=== PATIENT | female | born 1935 | race Caucasian/White ===

== ENCOUNTER 2021-09-07 16:25 | Inpatient (IN) | payer BC ==
[2021-09-07] MEDS ORDERED: SODIUM CHLORIDE 1,633 ML IV ONE (17:00)
[2021-09-07] MEDS ORDERED: PIPERACILLIN/TAZOB 4.5 GM 4.5 GM in DEXTROSE 5%-WATER 100 ML IVPB ONE (17:01)
[2021-09-07] MEDS ORDERED: VANCOMYCIN 1 GM in D5W (PRE-DOCKED) 1,000 MG/250 ML IVPB ONE (17:01)
[2021-09-07] MEDS ORDERED: SODIUM CHLORIDE 0.9% 500 ML INFUS.BAG IV ONE (17:02)
[2021-09-07] MEDS ORDERED: oxyCODONE HCL 5 MG TABLET PO PRN (17:34)
[2021-09-07] MEDS ORDERED: FUROSEMIDE 40 MG TABLET (FP) ONE (18:14)
[2021-09-07] MEDS ORDERED: PIPERACILLIN/TAZOB 4.5 GM 4.5 GM/100 ML BAG IVPB ONE (18:14)
[2021-09-07] MEDS: FUROSEMIDE 40 MG TABLET (FP) PO SCH (18:28)
[2021-09-07 18:51] LABS: BASO % 0.6 % (0-2.0); EOS % 0.8 % (0-4.5); HEMATOCRIT 35.7 % (32.4-45.2); HEMOGLOBIN 11.7 GM/dL (10.7-15.3); LYMPH % 11.9 % (8-40); MCH 28.9 pg (25.7-33.7); MCHC 32.9 g/dl (32.0-36.0); MEAN CELL VOLUME 87.6 fl (80-96); MEAN PLT VOLUME 6.4 fl (7.5-11.1); MONO % 8.3 % (3.8-10.2); NEUT % 78.4 % (42.8-82.8); PLATELET COUNT 393 10^3/uL (134-434); RBC 4.07 M/mm3 (3.60-5.2); RDW 15.9 % (11.6-15.6); WHITE BLOOD COUNT 9.3 K/mm3 (4.0-10.0)
[2021-09-07 18:58] LABS: INR 1.01 (0.83-1.09); PROTHROMBIN TIME (PATIENT) 11.6 SEC (9.7-13.0)
[2021-09-07 19:00] LABS: ACTIVATED PTT 31.1 SECONDS (25.2-36.5)
[2021-09-07 19:05] LABS: CALCIUM 8.4 mg/dL (8.5-10.1)
[2021-09-07 19:06] LABS: ALBUMIN 2.5 g/dl (3.4-5.0); BLOOD UREA NITROGEN 18.4 mg/dL (7-18)
[2021-09-07 19:09] LABS: CREATININE 0.8 mg/dL (0.55-1.3)
[2021-09-07 19:10] LABS: BILIRUBIN,TOTAL 0.3 mg/dL (0.2-1); TOT PROT 6.4 g/dl (6.4-8.2)
[2021-09-07 19:56] LABS: ERYTHROCYTE SEDIMENTATION RATE 45 mm/hr (0-30)
[2021-09-07] MEDS ORDERED: VANCOMYCIN 1 GRAM (PRE-DOCKED) 1,000 MG/250 ML BAG IVPB ONE (20:28)
[2021-09-07] MEDS: HEPARIN NA (PORCINE) 5,000 UNITS/ML 1ML VIAL SQ SCH (22:35)
[2021-09-08] MEDS: ACETAMINOPHEN 325 MG TABLET (FP) PO PRN ×2 (05:03→23:55)
[2021-09-08 10:00] LABS: BASO % 0.5 % (0-2.0); EOS % 0.2 % (0-4.5); HEMATOCRIT 33.3 % (32.4-45.2); HEMOGLOBIN 11.3 GM/dL (10.7-15.3); LYMPH % 11.7 % (8-40); MCH 29.3 pg (25.7-33.7); MCHC 33.8 g/dl (32.0-36.0); MEAN CELL VOLUME 86.6 fl (80-96); MEAN PLT VOLUME 6.3 fl (7.5-11.1); MONO % 12.8 % (3.8-10.2); NEUT % 74.8 % (42.8-82.8); PLATELET COUNT 364 10^3/uL (134-434); RBC 3.84 M/mm3 (3.60-5.2); RDW 15.5 % (11.6-15.6); WHITE BLOOD COUNT 8.6 K/mm3 (4.0-10.0)
[2021-09-08 10:28] LABS: CALCIUM 7.7 mg/dL (8.5-10.1)
[2021-09-08 10:29] LABS: ALBUMIN 2.1 g/dl (3.4-5.0); BLOOD UREA NITROGEN 15.3 mg/dL (7-18)
[2021-09-08 10:32] LABS: CREATININE 0.9 mg/dL (0.55-1.3)
[2021-09-08 10:33] LABS: TOT PROT 5.5 g/dl (6.4-8.2)
[2021-09-08 10:38] LABS: BILIRUBIN,TOTAL 0.7 mg/dL (0.2-1)
[2021-09-08] MEDS: HEPARIN NA (PORCINE) 5,000 UNITS/ML 1ML VIAL SQ SCH ×2 (11:25→23:56)
[2021-09-08] MEDS: FUROSEMIDE 40 MG TABLET (FP) PO SCH (11:25)
[2021-09-08] MEDS: POTASSIUM CHLORIDE ORAL LIQUID 20 MEQ/15 ML PO SCH (13:09)
[2021-09-08] MEDS ORDERED: AMPICILLIN NA/SULBACTAM NA 1.5 GM VIAL ONE ×2 (15:44→23:44)
[2021-09-08] MEDS ORDERED: SODIUM CHLORIDE 100 ML IVPB ONE ×2 (15:45→23:45)
[2021-09-08] MEDS: AMPICILLIN NA/SULBACTAM NA 1.5 GM in SODIUM CHLORIDE 100 ML IVPB SCH ×2 (16:52→23:55)
[2021-09-08] MEDS ORDERED: MEROPENEM 1 GM in DEXTROSE 5%-WATER 100 ML IVPB ONE (22:45)
[2021-09-08] MEDS ORDERED: MEROPENEM 1 GM VIAL (RESTRICTED TO ID) IVPB ONE (23:52)
[2021-09-08] MEDS ORDERED: DEXTROSE 5%-WATER 100 ML IVPB ONE (23:53)
[2021-09-09] MEDS ORDERED: SODIUM CHLORIDE 100 ML IVPB ONE ×2 (02:13→10:09)
[2021-09-09] MEDS ORDERED: AMPICILLIN NA/SULBACTAM NA 1.5 GM VIAL ONE ×2 (02:13→10:09)
[2021-09-09] MEDS: AMPICILLIN NA/SULBACTAM NA 1.5 GM in SODIUM CHLORIDE 100 ML IVPB SCH ×2 (02:25→10:13)
[2021-09-09] MEDS: HEPARIN NA (PORCINE) 5,000 UNITS/ML 1ML VIAL SQ SCH ×2 (10:13→22:02)
[2021-09-09] MEDS: POTASSIUM CHLORIDE ORAL LIQUID 20 MEQ/15 ML PO SCH (10:13)
[2021-09-09] MEDS: FUROSEMIDE 40 MG TABLET (FP) PO SCH (10:13)
[2021-09-09] MEDS ORDERED: DEXTROSE 5%-WATER 100 ML IVPB ONE (15:22)
[2021-09-09] MEDS: CEFTRIAXONE 2 GM in DEXTROSE 5%-WATER 2 GM/100 ML BAG IVPB SCH (15:30)
[2021-09-09] MEDS: ACETAMINOPHEN 325 MG TABLET (FP) PO PRN (15:30)
[2021-09-09] MEDS: MINERAL OIL/PET HY-PHL TOPICAL OINTMENT 454 GM JAR TP SCH (15:30)
[2021-09-09] MEDS: BACITRACIN 15 GM TUBE TOPICAL OINTMENT TP SCH ×2 (15:31→22:02)
[2021-09-10] MEDS ORDERED: DEXTROSE 5%-WATER 100 ML IVPB ONE (09:56)
[2021-09-10 09:57] LABS: BASO % 0.4 % (0-2.0); EOS % 0.9 % (0-4.5); HEMATOCRIT 31.4 % (32.4-45.2); HEMOGLOBIN 10.4 GM/dL (10.7-15.3); LYMPH % 14.1 % (8-40); MCH 28.8 pg (25.7-33.7); MCHC 33.1 g/dl (32.0-36.0); MEAN PLT VOLUME 6.5 fl (7.5-11.1); MONO % 7.7 % (3.8-10.2); NEUT % 76.9 % (42.8-82.8); PLATELET COUNT 302 10^3/uL (134-434); RBC 3.61 M/mm3 (3.60-5.2); RDW 15.6 % (11.6-15.6); WHITE BLOOD COUNT 7.9 K/mm3 (4.0-10.0)
[2021-09-10] MEDS: POTASSIUM CHLORIDE ORAL LIQUID 20 MEQ/15 ML PO SCH (10:00)
[2021-09-10] MEDS: HEPARIN NA (PORCINE) 5,000 UNITS/ML 1ML VIAL SQ SCH ×2 (10:01→22:31)
[2021-09-10] MEDS: FUROSEMIDE 40 MG TABLET (FP) PO SCH (10:01)
[2021-09-10 10:14] LABS: CALCIUM 7.1 mg/dL (8.5-10.1)
[2021-09-10 10:18] LABS: BLOOD UREA NITROGEN 12.9 mg/dL (7-18); CREATININE 0.9 mg/dL (0.55-1.3)
[2021-09-10 10:20] LABS: BILIRUBIN,TOTAL 0.3 mg/dL (0.2-1); TOT PROT 4.7 g/dl (6.4-8.2)
[2021-09-10 10:26] LABS: ALBUMIN 1.5 g/dl (3.4-5.0)
[2021-09-10] MEDS: CEFTRIAXONE 2 GM in DEXTROSE 5%-WATER 2 GM/100 ML BAG IVPB SCH (12:13)
[2021-09-10] MEDS: BACITRACIN 15 GM TUBE TOPICAL OINTMENT TP SCH (17:46)
[2021-09-10] MEDS: MINERAL OIL/PET HY-PHL TOPICAL OINTMENT 454 GM JAR TP SCH (17:46)
[2021-09-11] MEDS: BACITRACIN 15 GM TUBE TOPICAL OINTMENT TP SCH ×3 (01:51→22:43)
[2021-09-11] MEDS ORDERED: DEXTROSE 5%-WATER 100 ML IVPB ONE (10:37)
[2021-09-11] MEDS: HEPARIN NA (PORCINE) 5,000 UNITS/ML 1ML VIAL SQ SCH ×2 (10:45→22:43)
[2021-09-11] MEDS: FUROSEMIDE 40 MG TABLET (FP) PO SCH ×2 (10:45→14:20)
[2021-09-11] MEDS: AMINO ACIDS/PROTEIN HYDROLYS 30 ML LIQUID.PKT PO SCH (10:48)
[2021-09-11] MEDS: POTASSIUM CHLORIDE ORAL LIQUID 20 MEQ/15 ML PO SCH (10:49)
[2021-09-11] MEDS: CEFTRIAXONE 2 GM in DEXTROSE 5%-WATER 2 GM/100 ML BAG IVPB SCH ×2 (10:49→12:27)
[2021-09-11] MEDS: POTASSIUM CHLORIDE TABS 10 MEQ TABLET.ER (FP) PO SCH (14:20)
[2021-09-11] MEDS: MINERAL OIL/PET HY-PHL TOPICAL OINTMENT 454 GM JAR TP SCH (15:37)
[2021-09-12] MEDS: AMINO ACIDS/PROTEIN HYDROLYS 30 ML LIQUID.PKT PO SCH (08:50)
[2021-09-12 09:23] LABS: HEMATOCRIT 34.6 % (32.4-45.2); HEMOGLOBIN 11.9 GM/dL (10.7-15.3); LYMPH % 24.3 % (8-40); MCH 29.4 pg (25.7-33.7); MCHC 34.3 g/dl (32.0-36.0); MEAN CELL VOLUME 85.7 fl (80-96); MEAN PLT VOLUME 6.4 fl (7.5-11.1); MONO % 9.8 % (3.8-10.2); NEUT % 59.9 % (42.8-82.8); PLATELET COUNT 332 10^3/uL (134-434); RBC 4.04 M/mm3 (3.60-5.2); RDW 15.6 % (11.6-15.6); WHITE BLOOD COUNT 5.9 K/mm3 (4.0-10.0)
[2021-09-12] MEDS ORDERED: DEXTROSE 5%-WATER 100 ML IVPB ONE (09:41)
[2021-09-12] MEDS: CEFTRIAXONE 2 GM in DEXTROSE 5%-WATER 2 GM/100 ML BAG IVPB SCH (09:43)
[2021-09-12] MEDS: POTASSIUM CHLORIDE TABS 10 MEQ TABLET.ER (FP) PO SCH (09:43)
[2021-09-12] MEDS: FUROSEMIDE 40 MG TABLET (FP) PO SCH (09:44)
[2021-09-12] MEDS: HEPARIN NA (PORCINE) 5,000 UNITS/ML 1ML VIAL SQ SCH ×2 (09:44→22:36)
[2021-09-12 09:58] LABS: CALCIUM 7.9 mg/dL (8.5-10.1)
[2021-09-12 09:59] LABS: BLOOD UREA NITROGEN 13.8 mg/dL (7-18)
[2021-09-12 10:02] LABS: CREATININE 0.7 mg/dL (0.55-1.3)
[2021-09-12 10:04] LABS: BILIRUBIN,TOTAL 0.4 mg/dL (0.2-1); TOT PROT 5.5 g/dl (6.4-8.2)
[2021-09-12 10:05] LABS: ALBUMIN 1.9 g/dl (3.4-5.0)
[2021-09-12] MEDS: SENNOSIDES 8.6MG TABLET (FP) PO SCH ×2 (11:56→22:37)
[2021-09-12] MEDS ORDERED: SERTRALINE HCL 25 MG TABLET (FP) PO SCH (14:45)
[2021-09-12] MEDS: MINERAL OIL/PET HY-PHL TOPICAL OINTMENT 454 GM JAR TP SCH (17:17)
[2021-09-12] MEDS: BACITRACIN 15 GM TUBE TOPICAL OINTMENT TP SCH ×2 (17:17→22:36)
[2021-09-12] MEDS: METOCLOPRAMIDE HCL 10 MG TABLET (FP) PO SCH (17:17)
[2021-09-13] MEDS: METOCLOPRAMIDE HCL 10 MG TABLET (FP) PO SCH ×3 (06:18→17:08)
[2021-09-13] MEDS ORDERED: DEXTROSE 5%-WATER 100 ML IVPB ONE (10:51)
[2021-09-13] MEDS: AMINO ACIDS/PROTEIN HYDROLYS 30 ML LIQUID.PKT PO SCH (11:33)
[2021-09-13] MEDS: POTASSIUM CHLORIDE TABS 10 MEQ TABLET.ER (FP) PO SCH (11:36)
[2021-09-13] MEDS: HEPARIN NA (PORCINE) 5,000 UNITS/ML 1ML VIAL SQ SCH ×2 (11:36→21:02)
[2021-09-13] MEDS: FUROSEMIDE 40 MG TABLET (FP) PO SCH (11:36)
[2021-09-13] MEDS: SENNOSIDES 8.6MG TABLET (FP) PO SCH ×2 (11:36→21:02)
[2021-09-13] MEDS: MINERAL OIL/PET HY-PHL TOPICAL OINTMENT 454 GM JAR TP SCH (11:37)
[2021-09-13] MEDS: CEFTRIAXONE 2 GM in DEXTROSE 5%-WATER 2 GM/100 ML BAG IVPB SCH (11:37)
[2021-09-13] MEDS: BACITRACIN 15 GM TUBE TOPICAL OINTMENT TP SCH ×2 (11:37→21:01)
[2021-09-13] MEDS: TAMSULOSIN HCL 0.4 MG CAP PO SCH (15:33)
[2021-09-14] MEDS: METOCLOPRAMIDE HCL 10 MG TABLET (FP) PO SCH ×3 (06:26→18:06)
[2021-09-14] MEDS ORDERED: DEXTROSE 5%-WATER 100 ML IVPB ONE (10:25)
[2021-09-14] MEDS: SENNOSIDES 8.6MG TABLET (FP) PO SCH ×3 (10:34→21:43)
[2021-09-14] MEDS: TAMSULOSIN HCL 0.4 MG CAP PO SCH (10:34)
[2021-09-14] MEDS: AMINO ACIDS/PROTEIN HYDROLYS 30 ML LIQUID.PKT PO SCH (10:35)
[2021-09-14] MEDS: MINERAL OIL/PET HY-PHL TOPICAL OINTMENT 454 GM JAR TP SCH (10:35)
[2021-09-14] MEDS: FUROSEMIDE 40 MG TABLET (FP) PO SCH (10:35)
[2021-09-14] MEDS: POTASSIUM CHLORIDE TABS 10 MEQ TABLET.ER (FP) PO SCH (10:35)
[2021-09-14] MEDS: HEPARIN NA (PORCINE) 5,000 UNITS/ML 1ML VIAL SQ SCH (10:36)
[2021-09-14] MEDS: CEFTRIAXONE 2 GM in DEXTROSE 5%-WATER 2 GM/100 ML BAG IVPB SCH (12:29)
[2021-09-14] MEDS: SERTRALINE HCL 25 MG TABLET (FP) PO SCH (18:27)
[2021-09-14] MEDS: BACITRACIN 15 GM TUBE TOPICAL OINTMENT TP SCH ×2 (18:28→21:44)
[2021-09-14 18:50] VITALS: BMI 20.1
[2021-09-15] MEDS: TAMSULOSIN HCL 0.4 MG CAP PO SCH (08:27)
[2021-09-15] MEDS: AMINO ACIDS/PROTEIN HYDROLYS 30 ML LIQUID.PKT PO SCH (08:27)
[2021-09-15] MEDS ORDERED: DEXTROSE 5%-WATER 100 ML IVPB ONE (09:05)
[2021-09-15] MEDS: CEFTRIAXONE 2 GM in DEXTROSE 5%-WATER 2 GM/100 ML BAG IVPB SCH (09:15)
[2021-09-15] MEDS: SERTRALINE HCL 25 MG TABLET (FP) PO SCH (09:22)
[2021-09-15] MEDS: FUROSEMIDE 40 MG TABLET (FP) PO SCH (09:22)
[2021-09-15] MEDS: SENNOSIDES 8.6MG TABLET (FP) PO SCH ×2 (09:22→22:16)
[2021-09-15] MEDS: POTASSIUM CHLORIDE TABS 10 MEQ TABLET.ER (FP) PO SCH (09:22)
[2021-09-15] MEDS: BACITRACIN 15 GM TUBE TOPICAL OINTMENT TP SCH ×2 (09:23→22:34)
[2021-09-15] MEDS: MINERAL OIL/PET HY-PHL TOPICAL OINTMENT 454 GM JAR TP SCH (09:24)
[2021-09-15] MEDS: metroNIDAZOLE 500 MG TABLET PO SCH ×2 (14:04→22:34)
[2021-09-16] MEDS: metroNIDAZOLE 500 MG TABLET PO SCH ×3 (08:09→23:21)
[2021-09-16] MEDS: TAMSULOSIN HCL 0.4 MG CAP PO SCH (08:09)
[2021-09-16] MEDS: AMINO ACIDS/PROTEIN HYDROLYS 30 ML LIQUID.PKT PO SCH (08:09)
[2021-09-16] MEDS: SERTRALINE HCL 25 MG TABLET (FP) PO SCH (09:16)
[2021-09-16] MEDS: SENNOSIDES 8.6MG TABLET (FP) PO SCH ×3 (09:16→23:24)
[2021-09-16] MEDS: FUROSEMIDE 40 MG TABLET (FP) PO SCH (09:16)
[2021-09-16] MEDS: POTASSIUM CHLORIDE TABS 10 MEQ TABLET.ER (FP) PO SCH (09:16)
[2021-09-16] MEDS: BACITRACIN 15 GM TUBE TOPICAL OINTMENT TP SCH ×2 (18:27→23:21)
[2021-09-16] MEDS: MINERAL OIL/PET HY-PHL TOPICAL OINTMENT 454 GM JAR TP SCH (18:27)
[2021-09-17] MEDS: metroNIDAZOLE 500 MG TABLET PO SCH (06:07)
[2021-09-17 06:08] LABS: SARS-CoV-2 NAA Not Detected (Not Detected)
[2021-09-17] MEDS: AMINO ACIDS/PROTEIN HYDROLYS 30 ML LIQUID.PKT PO SCH (09:25)
[2021-09-17] MEDS: SENNOSIDES 8.6MG TABLET (FP) PO SCH (09:29)
[2021-09-17] MEDS: SERTRALINE HCL 25 MG TABLET (FP) PO SCH (09:59)
[2021-09-17] MEDS: FUROSEMIDE 40 MG TABLET (FP) PO SCH (09:59)
[2021-09-17] MEDS: POTASSIUM CHLORIDE TABS 10 MEQ TABLET.ER (FP) PO SCH (09:59)
[2021-09-17] MEDS: TAMSULOSIN HCL 0.4 MG CAP PO SCH (09:59)
[2021-09-17] MEDS: MINERAL OIL/PET HY-PHL TOPICAL OINTMENT 454 GM JAR TP SCH (09:59)
[2021-09-17] MEDS: BACITRACIN 15 GM TUBE TOPICAL OINTMENT TP SCH (10:00)
[2021-09-17 12:33] VITALS: BP 129/78; PULSE 86; TEMP 98.2
== END 2021-09-17 13:11 | DRG 602 ==
LOC: JER 16:25 → JERBED 17:10 → J5S 22:32
PROVIDERS: ADMIT Internal Medicine; ATTEND Internal Medicine
DX: L03.116 Cellulitis of left lower limb (principal); E43 Unspecified severe protein-calorie malnutrition; J18.9 Pneumonia, unspecified organism; R78.81 Bacteremia; L97.929 Non-pressure chronic ulcer of unspecified part of left lower leg with unspecified severity; L97.919 Non-pressure chronic ulcer of unspecified part of right lower leg with unspecified severity; J90 Pleural effusion, not elsewhere classified; J98.11 Atelectasis; L03.115 Cellulitis of right lower limb; R33.9 Retention of urine, unspecified; N20.0 Calculus of kidney; N28.1 Cyst of kidney, acquired
CPT/HCPCS: 36415; 70450-TC; 71045-TC-FY; 72125-TC; 73590-TC-LT-FY; 73590-TC-RT-FY; 73610-TC-LT-FY; 73610-TC-RT-FY; 73630-TC-LT; 73630-TC-RT-FY; 74176-TC; 80053; 80061; 82553; 83036; 83605; 84443; 85025; 85610; 85651; 85730; 86140; 86850; 86900; 86901; 87040; 87076; 93005; 93010; 93970-TC; 97116-GP; 97161-GP; 99285-25; C9803-CS; J1644; U0003; U0005

== ENCOUNTER 2021-11-11 11:24 | Inpatient (IN) | payer BC ==
[2021-11-11] MEDS ORDERED: VANCOMYCIN 1 GM in D5W (PRE-DOCKED) 1,000 MG/250 ML IVPB ONE (12:18)
[2021-11-11] MEDS ORDERED: VANCOMYCIN 1 GRAM (PRE-DOCKED) 1,000 MG/250 ML BAG IVPB ONE (13:22)
[2021-11-11 13:24] LABS: BASO % 0.6 % (0-2.0); EOS % 0.8 % (0-4.5); HEMATOCRIT 36.8 % (32.4-45.2); HEMOGLOBIN 11.9 GM/dL (10.7-15.3); LYMPH % 16.7 % (8-40); MCH 28.6 pg (25.7-33.7); MCHC 32.4 g/dl (32.0-36.0); MEAN CELL VOLUME 88.1 fl (80-96); MEAN PLT VOLUME 6.4 fl (7.5-11.1); MONO % 9.7 % (3.8-10.2); NEUT % 72.2 % (42.8-82.8); PLATELET COUNT 433 10^3/uL (134-434); RBC 4.17 M/mm3 (3.60-5.2); RDW 15.5 % (11.6-15.6)
[2021-11-11 13:33] LABS: BLOOD UREA NITROGEN 16.1 mg/dL (7-18)
[2021-11-11 13:34] LABS: INR 0.94 (0.83-1.09); PROTHROMBIN TIME (PATIENT) 10.8 SEC (9.7-13.0)
[2021-11-11 13:34] LABS: ALBUMIN 2.7 g/dl (3.4-5.0); CALCIUM 8.9 mg/dL (8.5-10.1)
[2021-11-11 13:39] LABS: BILIRUBIN,TOTAL 0.4 mg/dL (0.2-1); TOT PROT 7.4 g/dl (6.4-8.2)
[2021-11-11 13:41] LABS: N-TERMINAL BNP 410.5 pg/ml (5-450)
[2021-11-11] MEDS ORDERED: ACETAMINOPHEN 325 MG TABLET (FP) PO PRN (14:03)
[2021-11-11] MEDS ORDERED: FUROSEMIDE 40 MG/4 ML INJECTABLE VIAL ONE (16:25)
[2021-11-11] MEDS: FUROSEMIDE 40 MG/4 ML INJECTABLE VIAL IVPUSH SCH (16:28)
[2021-11-11 18:48] VITALS: BMI 21.1
[2021-11-11 19:00] LABS: EPI CELLS 1 /uL (0-25.1); HYALINE CASTS 0 /uL (0-3.1); PH,URINE 6.5 (5.0-8.0); URINE APPEARANCE CLEAR; URINE BACTERIA 36 /uL (0-1359); URINE BILIRUBIN NEGATIVE (NEGATIVE); URINE COLOR YELLOW; URINE GLUCOSE (UA) NEGATIVE (NEGATIVE); URINE KETONE NEGATIVE (NEGATIVE); URINE LEUK ESTERASE TRACE (NEGATIVE); URINE NITRITE NEGATIVE (NEGATIVE); URINE PROTEIN TRACE (NEGATIVE); URINE RBC 15 /uL (0-23.9); URINE UROBILINOGEN 0.2 mg/dL (0.2-1.0); URINE WBC 2 /uL (0-25.8)
[2021-11-11] MEDS ORDERED: DEXTROSE 5%-WATER - 50 ML IVPB ONE (19:17)
[2021-11-11] MEDS ORDERED: ceFAZolin SODIUM 1 GM VIAL ONE (19:17)
[2021-11-11] MEDS: ENOXAPARIN NA (PORCINE) 40 MG/0.4 ML DISP.SYRIN SQ SCH (19:18)
[2021-11-11] MEDS: CEFAZOLIN 1 GM in DEXTROSE 5%-WATER - 50 ML IVPB SCH (19:19)
[2021-11-11] MEDS: SENNOSIDES 8.6MG TABLET (FP) PO SCH ×2 (21:48→21:52)
[2021-11-12] MEDS: CEFAZOLIN 1 GM in DEXTROSE 5%-WATER - 50 ML IVPB SCH ×3 (02:00→18:44)
[2021-11-12] MEDS ORDERED: ceFAZolin SODIUM 1 GM VIAL ONE ×3 (03:13→16:32)
[2021-11-12] MEDS ORDERED: DEXTROSE 5%-WATER - 50 ML IVPB ONE ×3 (03:13→16:32)
[2021-11-12] MEDS ORDERED: AMINO ACIDS/PROTEIN HYDROLYS 30 ML LIQUID.PKT PO SCH (08:00)
[2021-11-12] MEDS: TAMSULOSIN HCL 0.4 MG CAP PO SCH (10:53)
[2021-11-12] MEDS: POTASSIUM CHLORIDE TABS 20 MEQ TABLET.ER (FP) PO SCH (10:53)
[2021-11-12] MEDS: MINERAL OIL/PET HY-PHL TOPICAL OINTMENT 454 GM JAR TP SCH (10:53)
[2021-11-12] MEDS: FUROSEMIDE 40 MG/4 ML INJECTABLE VIAL IVPUSH SCH (10:54)
[2021-11-12] MEDS: SENNOSIDES 8.6MG TABLET (FP) PO SCH (10:54)
[2021-11-12] MEDS: SERTRALINE HCL 25 MG TABLET (FP) PO SCH (10:54)
[2021-11-12] MEDS: ENOXAPARIN NA (PORCINE) 40 MG/0.4 ML DISP.SYRIN SQ SCH (10:54)
[2021-11-12] MEDS: VANCOMYCIN/WATER FOR INJ (PEG) 1,000 MG/200 ML BAG IVPB SCH (11:44)
[2021-11-12] MEDS: LIDOCAINE 5% TOPICAL PATCH TP SCH (12:44)
[2021-11-12] MEDS: LIDOCAINE PATCH REMOVAL MC SCH (22:43)
[2021-11-12] MEDS: HEPARIN NA (PORCINE) 5,000 UNITS/ML 1ML VIAL SQ SCH (22:43)
[2021-11-13 00:10] LABS: URINE APPEARANCE CLEAR; URINE BILIRUBIN NEGATIVE (NEGATIVE); URINE COLOR YELLOW; URINE GLUCOSE (UA) NEGATIVE (NEGATIVE); URINE KETONE NEGATIVE (NEGATIVE); URINE LEUK ESTERASE NEGATIVE (NEGATIVE); URINE NITRITE NEGATIVE (NEGATIVE); URINE PROTEIN NEGATIVE (NEGATIVE); URINE UROBILINOGEN 0.2 mg/dL (0.2-1.0)
[2021-11-13] MEDS ORDERED: ceFAZolin SODIUM 1 GM VIAL ONE ×3 (03:00→17:05)
[2021-11-13] MEDS ORDERED: DEXTROSE 5%-WATER - 50 ML IVPB ONE ×3 (03:01→17:05)
[2021-11-13] MEDS: CEFAZOLIN 1 GM in DEXTROSE 5%-WATER - 50 ML IVPB SCH ×4 (03:30→17:16)
[2021-11-13 09:30] LABS: BASO % 0.6 % (0-2.0); EOS % 2.3 % (0-4.5); HEMATOCRIT 34.2 % (32.4-45.2); HEMOGLOBIN 11.4 GM/dL (10.7-15.3); LYMPH % 17.6 % (8-40); MCHC 33.4 g/dl (32.0-36.0); MEAN CELL VOLUME 86.8 fl (80-96); MEAN PLT VOLUME 6.6 fl (7.5-11.1); MONO % 8.7 % (3.8-10.2); NEUT % 70.8 % (42.8-82.8); PLATELET COUNT 338 10^3/uL (134-434); RBC 3.94 M/mm3 (3.60-5.2); RDW 14.8 % (11.6-15.6); WHITE BLOOD COUNT 5.5 K/mm3 (4.0-10.0)
[2021-11-13] MEDS: TAMSULOSIN HCL 0.4 MG CAP PO SCH (10:20)
[2021-11-13] MEDS: HEPARIN NA (PORCINE) 5,000 UNITS/ML 1ML VIAL SQ SCH ×2 (10:21→21:36)
[2021-11-13] MEDS: SERTRALINE HCL 25 MG TABLET (FP) PO SCH (10:21)
[2021-11-13] MEDS: FUROSEMIDE 40 MG/4 ML INJECTABLE VIAL IVPUSH SCH (10:22)
[2021-11-13] MEDS: VANCOMYCIN/WATER FOR INJ (PEG) 1,000 MG/200 ML BAG IVPB SCH (10:23)
[2021-11-13] MEDS: LIDOCAINE 5% TOPICAL PATCH TP SCH (10:24)
[2021-11-13] MEDS: MINERAL OIL/PET HY-PHL TOPICAL OINTMENT 454 GM JAR TP SCH (10:24)
[2021-11-13 11:13] LABS: CALCIUM 7.9 mg/dL (8.5-10.1)
[2021-11-13 11:14] LABS: BLOOD UREA NITROGEN 17.3 mg/dL (7-18)
[2021-11-13 11:17] LABS: BILIRUBIN,TOTAL 0.6 mg/dL (0.2-1); CREATININE 0.8 mg/dL (0.55-1.3)
[2021-11-13 11:19] LABS: TOT PROT 5.5 g/dl (6.4-8.2)
[2021-11-13 11:24] LABS: ALBUMIN 1.9 g/dl (3.4-5.0)
[2021-11-13] MEDS: POTASSIUM CHLORIDE TABS 20 MEQ TABLET.ER (FP) PO SCH (11:56)
[2021-11-13] MEDS: SENNOSIDES 8.6MG TABLET (FP) PO PRN (21:45)
[2021-11-13] MEDS: LIDOCAINE PATCH REMOVAL MC SCH (21:51)
[2021-11-14] MEDS ORDERED: ceFAZolin SODIUM 1 GM VIAL ONE ×3 (02:47→17:48)
[2021-11-14] MEDS ORDERED: DEXTROSE 5%-WATER - 50 ML IVPB ONE ×3 (02:47→17:49)
[2021-11-14] MEDS: CEFAZOLIN 1 GM in DEXTROSE 5%-WATER - 50 ML IVPB SCH ×3 (02:50→17:58)
[2021-11-14] MEDS: TAMSULOSIN HCL 0.4 MG CAP PO SCH (08:55)
[2021-11-14] MEDS: POTASSIUM CHLORIDE TABS 20 MEQ TABLET.ER (FP) PO SCH (10:39)
[2021-11-14] MEDS: FUROSEMIDE 40 MG/4 ML INJECTABLE VIAL IVPUSH SCH (10:39)
[2021-11-14] MEDS: SERTRALINE HCL 25 MG TABLET (FP) PO SCH (10:39)
[2021-11-14] MEDS: HEPARIN NA (PORCINE) 5,000 UNITS/ML 1ML VIAL SQ SCH ×2 (10:40→23:32)
[2021-11-14] MEDS: VANCOMYCIN/WATER FOR INJ (PEG) 1,000 MG/200 ML BAG IVPB SCH (10:40)
[2021-11-14] MEDS: MINERAL OIL/PET HY-PHL TOPICAL OINTMENT 454 GM JAR TP SCH (10:41)
[2021-11-14] MEDS: LIDOCAINE 5% TOPICAL PATCH TP SCH (10:54)
[2021-11-14] MEDS: LIDOCAINE PATCH REMOVAL MC SCH (23:32)
[2021-11-14] MEDS: SENNOSIDES 8.6MG TABLET (FP) PO PRN (23:37)
[2021-11-15] MEDS ORDERED: PIPERACILLIN/TAZOBACTAM 3.375 GM VIAL IVPB ONE ×3 (02:13→17:39)
[2021-11-15] MEDS ORDERED: DEXTROSE 5%-WATER - 50 ML IVPB ONE ×3 (02:14→17:39)
[2021-11-15] MEDS: PIPERACILLIN/TAZOB 3.375 GM 3.375 GM in DEXTROSE 5%-WATER - 50 ML IVPB SCH ×3 (02:33→17:49)
[2021-11-15] MEDS: POTASSIUM CHLORIDE TABS 20 MEQ TABLET.ER (FP) PO SCH (10:11)
[2021-11-15] MEDS: LIDOCAINE 5% TOPICAL PATCH TP SCH (10:11)
[2021-11-15] MEDS: TAMSULOSIN HCL 0.4 MG CAP PO SCH (10:11)
[2021-11-15] MEDS: SERTRALINE HCL 25 MG TABLET (FP) PO SCH (10:11)
[2021-11-15] MEDS: FUROSEMIDE 40 MG/4 ML INJECTABLE VIAL IVPUSH SCH (10:12)
[2021-11-15] MEDS: HEPARIN NA (PORCINE) 5,000 UNITS/ML 1ML VIAL SQ SCH ×2 (10:12→21:39)
[2021-11-15] MEDS: VANCOMYCIN/WATER FOR INJ (PEG) 1,000 MG/200 ML BAG IVPB SCH (10:12)
[2021-11-15] MEDS: MINERAL OIL/PET HY-PHL TOPICAL OINTMENT 454 GM JAR TP SCH (10:12)
[2021-11-15] MEDS ORDERED: POLYETHYLENE GLYCOL (HEALTHYLAX) 3350 17 GM PACKET PO ONE (17:10)
[2021-11-15] MEDS: SENNOSIDES 8.6MG TABLET (FP) PO PRN (21:39)
[2021-11-15] MEDS: LIDOCAINE PATCH REMOVAL MC SCH (21:43)
[2021-11-16] MEDS ORDERED: PIPERACILLIN/TAZOBACTAM 3.375 GM VIAL IVPB ONE ×3 (00:58→17:01)
[2021-11-16] MEDS ORDERED: DEXTROSE 5%-WATER - 50 ML IVPB ONE ×3 (00:59→17:02)
[2021-11-16] MEDS: PIPERACILLIN/TAZOB 3.375 GM 3.375 GM in DEXTROSE 5%-WATER - 50 ML IVPB SCH ×3 (01:51→17:57)
[2021-11-16 08:18] LABS: BASO % 0.9 % (0-2.0); HEMATOCRIT 33.2 % (32.4-45.2); HEMOGLOBIN 10.9 GM/dL (10.7-15.3); LYMPH % 25.6 % (8-40); MCH 28.5 pg (25.7-33.7); MCHC 32.8 g/dl (32.0-36.0); MEAN CELL VOLUME 86.8 fl (80-96); MEAN PLT VOLUME 6.9 fl (7.5-11.1); MONO % 12.9 % (3.8-10.2); NEUT % 57.6 % (42.8-82.8); PLATELET COUNT 357 10^3/uL (134-434); RBC 3.83 M/mm3 (3.60-5.2); RDW 14.7 % (11.6-15.6); WHITE BLOOD COUNT 5.1 K/mm3 (4.0-10.0)
[2021-11-16 08:34] LABS: CHLORIDE 101 mmol/L (98-107); SODIUM 138 mmol/L (136-145)
[2021-11-16] MEDS: TAMSULOSIN HCL 0.4 MG CAP PO SCH (08:47)
[2021-11-16 08:50] LABS: CALCIUM 8.3 mg/dL (8.5-10.1); GLUCOSE,RANDOM 100 mg/dL (74-106)
[2021-11-16 08:51] LABS: ALBUMIN 1.9 g/dl (3.4-5.0); ANION GAP 7 MMOL/L (8-16); CO2 29 mmol/L (21-32)
[2021-11-16 08:54] LABS: CREATININE 0.9 mg/dL (0.55-1.3); SGOT/AST 11 U/L (15-37)
[2021-11-16 08:55] LABS: BILIRUBIN,TOTAL 0.6 mg/dL (0.2-1); TOT PROT 5.6 g/dl (6.4-8.2)
[2021-11-16 08:56] LABS: ALK PHOS 146 U/L (45-117); BLOOD UREA NITROGEN 24.9 mg/dL (7-18)
[2021-11-16] MEDS: POTASSIUM CHLORIDE TABS 20 MEQ TABLET.ER (FP) PO SCH (09:06)
[2021-11-16] MEDS: LIDOCAINE 5% TOPICAL PATCH TP SCH (09:06)
[2021-11-16] MEDS: VANCOMYCIN/WATER FOR INJ (PEG) 1,000 MG/200 ML BAG IVPB SCH (09:06)
[2021-11-16] MEDS: HEPARIN NA (PORCINE) 5,000 UNITS/ML 1ML VIAL SQ SCH ×2 (09:06→21:32)
[2021-11-16] MEDS: SENNOSIDES 8.6MG TABLET (FP) PO PRN ×2 (09:07→21:51)
[2021-11-16] MEDS: MINERAL OIL/PET HY-PHL TOPICAL OINTMENT 454 GM JAR TP SCH (09:08)
[2021-11-16] MEDS: SERTRALINE HCL 25 MG TABLET (FP) PO SCH (09:08)
[2021-11-16] MEDS: FUROSEMIDE 40 MG TABLET (FP) PO SCH (09:08)
[2021-11-16 09:10] LABS: SGPT/ALT < 6 U/L (13-61)
[2021-11-16] MEDS: LIDOCAINE PATCH REMOVAL MC SCH (21:32)
[2021-11-17] MEDS ORDERED: PIPERACILLIN/TAZOBACTAM 3.375 GM VIAL IVPB ONE ×3 (01:54→17:56)
[2021-11-17] MEDS ORDERED: DEXTROSE 5%-WATER - 50 ML IVPB ONE ×3 (01:54→17:56)
[2021-11-17] MEDS: PIPERACILLIN/TAZOB 3.375 GM 3.375 GM in DEXTROSE 5%-WATER - 50 ML IVPB SCH ×3 (02:57→18:00)
[2021-11-17] MEDS: SERTRALINE HCL 25 MG TABLET (FP) PO SCH (09:52)
[2021-11-17] MEDS: TAMSULOSIN HCL 0.4 MG CAP PO SCH (09:52)
[2021-11-17] MEDS: FUROSEMIDE 40 MG TABLET (FP) PO SCH (09:52)
[2021-11-17] MEDS: HEPARIN NA (PORCINE) 5,000 UNITS/ML 1ML VIAL SQ SCH ×2 (09:52→22:35)
[2021-11-17] MEDS: LIDOCAINE 5% TOPICAL PATCH TP SCH (09:52)
[2021-11-17] MEDS: POTASSIUM CHLORIDE TABS 20 MEQ TABLET.ER (FP) PO SCH (09:53)
[2021-11-17] MEDS: MINERAL OIL/PET HY-PHL TOPICAL OINTMENT 454 GM JAR TP SCH (09:53)
[2021-11-17] MEDS: VANCOMYCIN/WATER FOR INJ (PEG) 1,000 MG/200 ML BAG IVPB SCH (13:12)
[2021-11-17] MEDS: LIDOCAINE PATCH REMOVAL MC SCH (22:36)
[2021-11-18] MEDS ORDERED: PIPERACILLIN/TAZOBACTAM 3.375 GM VIAL IVPB ONE ×2 (01:32→12:48)
[2021-11-18] MEDS ORDERED: DEXTROSE 5%-WATER - 50 ML IVPB ONE ×2 (01:33→12:49)
[2021-11-18] MEDS: PIPERACILLIN/TAZOB 3.375 GM 3.375 GM in DEXTROSE 5%-WATER - 50 ML IVPB SCH ×2 (02:22→12:55)
[2021-11-18] MEDS: LIDOCAINE 5% TOPICAL PATCH TP SCH (12:54)
[2021-11-18] MEDS: FUROSEMIDE 40 MG TABLET (FP) PO SCH (12:54)
[2021-11-18] MEDS: POTASSIUM CHLORIDE TABS 20 MEQ TABLET.ER (FP) PO SCH (12:54)
[2021-11-18] MEDS: HEPARIN NA (PORCINE) 5,000 UNITS/ML 1ML VIAL SQ SCH ×2 (12:54→21:45)
[2021-11-18] MEDS: SERTRALINE HCL 25 MG TABLET (FP) PO SCH (12:56)
[2021-11-18] MEDS: MINERAL OIL/PET HY-PHL TOPICAL OINTMENT 454 GM JAR TP SCH (12:56)
[2021-11-18] MEDS: TAMSULOSIN HCL 0.4 MG CAP PO SCH (13:04)
[2021-11-18] MEDS: VANCOMYCIN/WATER FOR INJ (PEG) 1,000 MG/200 ML BAG IVPB SCH (14:56)
[2021-11-18] MEDS: CLINDAMYCIN HCL 150 MG CAPSULE (FP) PO SCH (21:45)
[2021-11-18] MEDS: LIDOCAINE PATCH REMOVAL MC SCH (21:45)
[2021-11-19] MEDS: CLINDAMYCIN HCL 150 MG CAPSULE (FP) PO SCH ×3 (05:59→22:06)
[2021-11-19] MEDS: TAMSULOSIN HCL 0.4 MG CAP PO SCH (08:32)
[2021-11-19] MEDS: HEPARIN NA (PORCINE) 5,000 UNITS/ML 1ML VIAL SQ SCH (10:31)
[2021-11-19] MEDS: MULTIVITAMINS (DAILY MVI) TABLET (FP) PO SCH (10:31)
[2021-11-19] MEDS: FUROSEMIDE 40 MG TABLET (FP) PO SCH (10:31)
[2021-11-19] MEDS: POTASSIUM CHLORIDE TABS 20 MEQ TABLET.ER (FP) PO SCH (10:31)
[2021-11-19] MEDS: MINERAL OIL/PET HY-PHL TOPICAL OINTMENT 454 GM JAR TP SCH (10:32)
[2021-11-19] MEDS: SERTRALINE HCL 25 MG TABLET (FP) PO SCH (10:32)
[2021-11-19] MEDS: LIDOCAINE 5% TOPICAL PATCH TP SCH (10:32)
[2021-11-19] MEDS: LIDOCAINE PATCH REMOVAL MC SCH (22:07)
[2021-11-20 06:06] VITALS: TEMP 97.9
[2021-11-20] MEDS: CLINDAMYCIN HCL 150 MG CAPSULE (FP) PO SCH ×2 (06:12→13:22)
[2021-11-20 09:44] VITALS: BP 115/57; PULSE 81
[2021-11-20] MEDS: LIDOCAINE 5% TOPICAL PATCH TP SCH (09:45)
[2021-11-20] MEDS: FUROSEMIDE 40 MG TABLET (FP) PO SCH (09:45)
[2021-11-20] MEDS: POTASSIUM CHLORIDE TABS 20 MEQ TABLET.ER (FP) PO SCH (09:46)
[2021-11-20] MEDS: TAMSULOSIN HCL 0.4 MG CAP PO SCH (09:46)
[2021-11-20] MEDS: MINERAL OIL/PET HY-PHL TOPICAL OINTMENT 454 GM JAR TP SCH (09:46)
[2021-11-20] MEDS: SERTRALINE HCL 25 MG TABLET (FP) PO SCH (09:46)
[2021-11-20] MEDS: MULTIVITAMINS (DAILY MVI) TABLET (FP) PO SCH (09:46)
== END 2021-11-20 15:29 | DRG 602 ==
LOC: JER 11:24 → JERBED 13:15 → J7W 16:54
PROVIDERS: ADMIT Internal Medicine; ATTEND Internal Medicine
DX: L03.116 Cellulitis of left lower limb (principal); E43 Unspecified severe protein-calorie malnutrition; F39 Unspecified mood [affective] disorder; L03.115 Cellulitis of right lower limb; Z68.21 Body mass index [BMI] 21.0-21.9, adult
CPT/HCPCS: 36415; 71045-TC-FY; 73590-TC-LT-FY; 73590-TC-RT-FY; 80053; 81003; 83880; 84484; 85025; 85610; 85730; 87040; 87086; 87186; 93005; 93010; 97116-GP; 97162-GP; 99285-25; C9803-CS; G0480; J1644; U0003; U0005

== ENCOUNTER 2022-01-08 12:46 | Inpatient (IN) | payer BC ==
[2022-01-08] MEDS ORDERED: VANCOMYCIN 1 GM in D5W (PRE-DOCKED) 1,000 MG/250 ML IVPB ONE (13:41)
[2022-01-08] MEDS ORDERED: PIPERACILLIN/TAZOB 4.5 GM 4.5 GM in DEXTROSE 5%-WATER 100 ML IVPB ONE (13:41)
[2022-01-08] MEDS ORDERED: VANCOMYCIN 1 GRAM (PRE-DOCKED) 1,000 MG/250 ML BAG IVPB ONE (14:02)
[2022-01-08] MEDS ORDERED: PIPERACILLIN/TAZOB 4.5 GM 4.5 GM/100 ML BAG IVPB ONE (14:03)
[2022-01-08 14:33] LABS: BASO % 0.3 % (0-2.0); EOS % 0.8 % (0-4.5); HEMATOCRIT 34.8 % (32.4-45.2); HEMOGLOBIN 11.2 GM/dL (10.7-15.3); LYMPH % 6.4 % (8-40); MCH 28.1 pg (25.7-33.7); MCHC 32.3 g/dl (32.0-36.0); MEAN PLT VOLUME 6.6 fl (7.5-11.1); MONO % 7.5 % (3.8-10.2); PLATELET COUNT 425 10^3/uL (134-434); RBC 3.99 M/mm3 (3.60-5.2); RDW 14.3 % (11.6-15.6)
[2022-01-08 15:26] LABS: ALBUMIN 2.1 g/dl (3.4-5.0); BLOOD UREA NITROGEN 29.8 mg/dL (7-18); CALCIUM 8.1 mg/dL (8.5-10.1)
[2022-01-08 15:28] LABS: CREATININE 1.2 mg/dL (0.55-1.3)
[2022-01-08 15:31] LABS: BILIRUBIN,TOTAL 0.4 mg/dL (0.2-1); TOT PROT 6.9 g/dl (6.4-8.2)
[2022-01-08] MEDS ORDERED: ACETAMINOPHEN 325 MG TABLET (FP) PO PRN (16:16)
[2022-01-08] MEDS: MINERAL OIL/PET HY-PHL TOPICAL OINTMENT 454 GM JAR TP SCH (18:23)
[2022-01-08 18:57] LABS: CALCIUM 8.1 mg/dL (8.5-10.1)
[2022-01-08 18:58] LABS: BLOOD UREA NITROGEN 27.6 mg/dL (7-18)
[2022-01-08 19:01] LABS: CREATININE 1.1 mg/dL (0.55-1.3)
[2022-01-08] MEDS: HEPARIN NA (PORCINE) 5,000 UNITS/ML 1ML VIAL SQ SCH (22:08)
[2022-01-08] MEDS: SENNOSIDES 8.6MG TABLET (FP) PO SCH ×2 (22:09→22:14)
[2022-01-09 09:24] LABS: BASO % 0.3 % (0-2.0); EOS % 0.6 % (0-4.5); HEMATOCRIT 30.6 % (32.4-45.2); HEMOGLOBIN 10.1 GM/dL (10.7-15.3); LYMPH % 9.5 % (8-40); MCH 28.3 pg (25.7-33.7); MCHC 32.9 g/dl (32.0-36.0); MEAN PLT VOLUME 6.1 fl (7.5-11.1); MONO % 7.3 % (3.8-10.2); NEUT % 82.3 % (42.8-82.8); PLATELET COUNT 375 10^3/uL (134-434); RBC 3.56 M/mm3 (3.60-5.2); RDW 14.6 % (11.6-15.6); WHITE BLOOD COUNT 12.3 K/mm3 (4.0-10.0)
[2022-01-09] MEDS ORDERED: DEXTROSE 5%-WATER - 50 ML IVPB ONE ×2 (09:38→16:26)
[2022-01-09] MEDS ORDERED: PIPERACILLIN/TAZOBACTAM 3.375 GM VIAL IVPB ONE ×2 (09:38→16:26)
[2022-01-09] MEDS ORDERED: FUROSEMIDE 40 MG TABLET (FP) PO SCH (10:00)
[2022-01-09] MEDS: LACTOBACILLUS ACIDOPHILUS 1 TABLET PO SCH (10:11)
[2022-01-09] MEDS: PIPERACILLIN/TAZOB 3.375 GM 3.375 GM in DEXTROSE 5%-WATER - 50 ML IVPB SCH ×2 (10:11→17:30)
[2022-01-09] MEDS: HEPARIN NA (PORCINE) 5,000 UNITS/ML 1ML VIAL SQ SCH ×2 (10:11→21:26)
[2022-01-09] MEDS: SERTRALINE HCL 25 MG TABLET (FP) PO SCH (10:11)
[2022-01-09] MEDS: TAMSULOSIN HCL 0.4 MG CAP PO SCH (10:11)
[2022-01-09] MEDS: MINERAL OIL/PET HY-PHL TOPICAL OINTMENT 454 GM JAR TP SCH (10:12)
[2022-01-09] MEDS: AMINO ACIDS/PROTEIN HYDROLYS 30 ML LIQUID.PKT PO SCH (10:12)
[2022-01-09] MEDS: SENNOSIDES 8.6MG TABLET (FP) PO SCH ×2 (10:13→21:26)
[2022-01-09 10:15] LABS: CALCIUM 7.7 mg/dL (8.5-10.1)
[2022-01-09 10:16] LABS: ALBUMIN 1.7 g/dl (3.4-5.0); BLOOD UREA NITROGEN 22.7 mg/dL (7-18)
[2022-01-09 10:19] LABS: CREATININE 0.8 mg/dL (0.55-1.3)
[2022-01-09 10:20] LABS: BILIRUBIN,TOTAL 0.2 mg/dL (0.2-1)
[2022-01-09 10:21] LABS: TOT PROT 5.1 g/dl (6.4-8.2)
[2022-01-09] MEDS: VANCOMYCIN 1 GRAM (PRE-DOCKED) 1,000 MG/250 ML BAG IVPB SCH (18:30)
[2022-01-10] MEDS ORDERED: DEXTROSE 5%-WATER - 50 ML IVPB ONE ×3 (01:18→17:38)
[2022-01-10] MEDS ORDERED: PIPERACILLIN/TAZOBACTAM 3.375 GM VIAL IVPB ONE ×3 (01:18→17:38)
[2022-01-10] MEDS: PIPERACILLIN/TAZOB 3.375 GM 3.375 GM in DEXTROSE 5%-WATER - 50 ML IVPB SCH ×3 (01:35→17:41)
[2022-01-10] MEDS: SERTRALINE HCL 25 MG TABLET (FP) PO SCH (09:20)
[2022-01-10] MEDS: HEPARIN NA (PORCINE) 5,000 UNITS/ML 1ML VIAL SQ SCH ×2 (09:20→22:20)
[2022-01-10] MEDS: TAMSULOSIN HCL 0.4 MG CAP PO SCH (09:20)
[2022-01-10] MEDS: SENNOSIDES 8.6MG TABLET (FP) PO SCH ×2 (09:20→22:20)
[2022-01-10] MEDS: AMINO ACIDS/PROTEIN HYDROLYS 30 ML LIQUID.PKT PO SCH (09:21)
[2022-01-10] MEDS: MINERAL OIL/PET HY-PHL TOPICAL OINTMENT 454 GM JAR TP SCH (09:21)
[2022-01-10] MEDS: LACTOBACILLUS ACIDOPHILUS 1 TABLET PO SCH (09:21)
[2022-01-10] MEDS: FUROSEMIDE 40 MG/4 ML INJECTABLE VIAL IVPUSH SCH (09:50)
[2022-01-10] MEDS: VANCOMYCIN 1 GRAM (PRE-DOCKED) 1,000 MG/250 ML BAG IVPB SCH (17:43)
[2022-01-11] MEDS ORDERED: PIPERACILLIN/TAZOBACTAM 3.375 GM VIAL IVPB ONE ×3 (02:26→17:05)
[2022-01-11] MEDS ORDERED: DEXTROSE 5%-WATER - 50 ML IVPB ONE ×3 (02:26→17:05)
[2022-01-11] MEDS: PIPERACILLIN/TAZOB 3.375 GM 3.375 GM in DEXTROSE 5%-WATER - 50 ML IVPB SCH ×3 (02:31→17:17)
[2022-01-11] MEDS: SENNOSIDES 8.6MG TABLET (FP) PO SCH ×2 (09:08→22:00)
[2022-01-11] MEDS: MINERAL OIL/PET HY-PHL TOPICAL OINTMENT 454 GM JAR TP SCH (09:09)
[2022-01-11] MEDS: FUROSEMIDE 40 MG/4 ML INJECTABLE VIAL IVPUSH SCH (09:09)
[2022-01-11] MEDS: HEPARIN NA (PORCINE) 5,000 UNITS/ML 1ML VIAL SQ SCH ×2 (09:09→21:59)
[2022-01-11] MEDS: TAMSULOSIN HCL 0.4 MG CAP PO SCH (09:09)
[2022-01-11] MEDS: LACTOBACILLUS ACIDOPHILUS 1 TABLET PO SCH (09:16)
[2022-01-11] MEDS: SERTRALINE HCL 25 MG TABLET (FP) PO SCH (09:17)
[2022-01-11] MEDS: AMINO ACIDS/PROTEIN HYDROLYS 30 ML LIQUID.PKT PO SCH (09:17)
[2022-01-11] MEDS: VANCOMYCIN 1 GRAM (PRE-DOCKED) 1,000 MG/250 ML BAG IVPB SCH (18:05)
[2022-01-12] MEDS ORDERED: PIPERACILLIN/TAZOBACTAM 3.375 GM VIAL IVPB ONE ×3 (01:31→17:07)
[2022-01-12] MEDS ORDERED: DEXTROSE 5%-WATER - 50 ML IVPB ONE ×3 (01:31→17:08)
[2022-01-12] MEDS: PIPERACILLIN/TAZOB 3.375 GM 3.375 GM in DEXTROSE 5%-WATER - 50 ML IVPB SCH ×3 (01:53→17:24)
[2022-01-12] MEDS: AMINO ACIDS/PROTEIN HYDROLYS 30 ML LIQUID.PKT PO SCH (08:39)
[2022-01-12] MEDS: TAMSULOSIN HCL 0.4 MG CAP PO SCH (08:39)
[2022-01-12] MEDS: LACTOBACILLUS ACIDOPHILUS 1 TABLET PO SCH (09:47)
[2022-01-12] MEDS: HEPARIN NA (PORCINE) 5,000 UNITS/ML 1ML VIAL SQ SCH ×2 (09:47→22:58)
[2022-01-12] MEDS: FUROSEMIDE 40 MG/4 ML INJECTABLE VIAL IVPUSH SCH (09:47)
[2022-01-12] MEDS: SERTRALINE HCL 25 MG TABLET (FP) PO SCH (09:48)
[2022-01-12] MEDS: SENNOSIDES 8.6MG TABLET (FP) PO SCH ×2 (09:48→23:00)
[2022-01-12] MEDS: MINERAL OIL/PET HY-PHL TOPICAL OINTMENT 454 GM JAR TP SCH (11:47)
[2022-01-12] MEDS: VANCOMYCIN 1 GRAM (PRE-DOCKED) 1,000 MG/250 ML BAG IVPB SCH (16:31)
[2022-01-13] MEDS ORDERED: PIPERACILLIN/TAZOBACTAM 3.375 GM VIAL IVPB ONE ×3 (01:51→17:43)
[2022-01-13] MEDS ORDERED: DEXTROSE 5%-WATER - 50 ML IVPB ONE ×3 (01:51→17:44)
[2022-01-13] MEDS: PIPERACILLIN/TAZOB 3.375 GM 3.375 GM in DEXTROSE 5%-WATER - 50 ML IVPB SCH ×3 (02:32→17:55)
[2022-01-13] MEDS: TAMSULOSIN HCL 0.4 MG CAP PO SCH (08:07)
[2022-01-13] MEDS: AMINO ACIDS/PROTEIN HYDROLYS 30 ML LIQUID.PKT PO SCH (08:07)
[2022-01-13 09:27] LABS: BASO % 0.7 % (0-2.0); EOS % 1.3 % (0-4.5); HEMATOCRIT 33.8 % (32.4-45.2); HEMOGLOBIN 11.1 GM/dL (10.7-15.3); LYMPH % 16.5 % (8-40); MEAN CELL VOLUME 84.8 fl (80-96); MEAN PLT VOLUME 6.1 fl (7.5-11.1); NEUT % 74.5 % (42.8-82.8); PLATELET COUNT 368 10^3/uL (134-434); RBC 3.98 M/mm3 (3.60-5.2); RDW 14.7 % (11.6-15.6); WHITE BLOOD COUNT 8.6 K/mm3 (4.0-10.0)
[2022-01-13 10:00] LABS: CHLORIDE 94 mmol/L (98-107); SODIUM 137 mmol/L (136-145)
[2022-01-13] MEDS: LACTOBACILLUS ACIDOPHILUS 1 TABLET PO SCH (10:11)
[2022-01-13] MEDS: SERTRALINE HCL 25 MG TABLET (FP) PO SCH (10:11)
[2022-01-13] MEDS: FUROSEMIDE 40 MG/4 ML INJECTABLE VIAL IVPUSH SCH (10:11)
[2022-01-13] MEDS: SENNOSIDES 8.6MG TABLET (FP) PO SCH ×3 (10:11→21:20)
[2022-01-13] MEDS: HEPARIN NA (PORCINE) 5,000 UNITS/ML 1ML VIAL SQ SCH ×2 (10:11→21:20)
[2022-01-13 10:14] LABS: ALBUMIN 1.8 g/dl (3.4-5.0); BLOOD UREA NITROGEN 18.2 mg/dL (7-18); CALCIUM 7.9 mg/dL (8.5-10.1); GLUCOSE,RANDOM 147 mg/dL (74-106)
[2022-01-13 10:15] LABS: CO2 36 mmol/L (21-32)
[2022-01-13 10:17] LABS: SGOT/AST 14 U/L (15-37)
[2022-01-13 10:18] LABS: SGPT/ALT 10 U/L (13-61)
[2022-01-13 10:20] LABS: ALK PHOS 97 U/L (45-117)
[2022-01-13] MEDS: MINERAL OIL/PET HY-PHL TOPICAL OINTMENT 454 GM JAR TP SCH (10:22)
[2022-01-13 10:47] LABS: ANION GAP 8 MMOL/L (8-16)
[2022-01-13] MEDS: POTASSIUM CHLORIDE TABS 20 MEQ TABLET.ER (FP) PO SCH ×2 (12:41→17:55)
[2022-01-13 16:30] VITALS: BMI 19.1
[2022-01-13] MEDS ORDERED: VANCOMYCIN/WATER FOR INJ (PEG) 1,000 MG/250 ML BAG IVPB SCH (18:00)
[2022-01-13] MEDS: VANCOMYCIN 1 GRAM (PRE-DOCKED) 1,000 MG/250 ML BAG IVPB SCH (19:10)
[2022-01-14] MEDS ORDERED: DEXTROSE 5%-WATER - 50 ML IVPB ONE ×2 (01:39→10:45)
[2022-01-14] MEDS ORDERED: PIPERACILLIN/TAZOBACTAM 3.375 GM VIAL IVPB ONE ×2 (01:39→10:45)
[2022-01-14] MEDS: PIPERACILLIN/TAZOB 3.375 GM 3.375 GM in DEXTROSE 5%-WATER - 50 ML IVPB SCH ×2 (01:57→11:08)
[2022-01-14] MEDS: TAMSULOSIN HCL 0.4 MG CAP PO SCH (08:09)
[2022-01-14] MEDS: AMINO ACIDS/PROTEIN HYDROLYS 30 ML LIQUID.PKT PO SCH (08:12)
[2022-01-14] MEDS ORDERED: POTASSIUM CHLORIDE ORAL LIQUID 20 MEQ/15 ML PO SCH (10:00)
[2022-01-14] MEDS ORDERED: MULTIVITAMINS (DAILY MVI) TABLET (FP) PO SCH (10:00)
[2022-01-14] MEDS ORDERED: FUROSEMIDE 40 MG TABLET (FP) PO SCH (10:00)
[2022-01-14] MEDS: SERTRALINE HCL 25 MG TABLET (FP) PO SCH (11:08)
[2022-01-14] MEDS: LACTOBACILLUS ACIDOPHILUS 1 TABLET PO SCH (11:09)
[2022-01-14] MEDS: HEPARIN NA (PORCINE) 5,000 UNITS/ML 1ML VIAL SQ SCH (11:09)
[2022-01-14] MEDS: MINERAL OIL/PET HY-PHL TOPICAL OINTMENT 454 GM JAR TP SCH (11:09)
[2022-01-14] MEDS: SENNOSIDES 8.6MG TABLET (FP) PO SCH (11:10)
[2022-01-14 13:39] LABS: BASO % 0.7 % (0-2.0); EOS % 1.9 % (0-4.5); HEMATOCRIT 34.7 % (32.4-45.2); HEMOGLOBIN 11.4 GM/dL (10.7-15.3); LYMPH % 16.8 % (8-40); MEAN CELL VOLUME 84.9 fl (80-96); MEAN PLT VOLUME 6.2 fl (7.5-11.1); NEUT % 73.6 % (42.8-82.8); PLATELET COUNT 363 10^3/uL (134-434); RBC 4.09 M/mm3 (3.60-5.2); RDW 14.7 % (11.6-15.6); WHITE BLOOD COUNT 7.5 K/mm3 (4.0-10.0)
[2022-01-14 14:02] LABS: ALBUMIN 1.9 g/dl (3.4-5.0); BLOOD UREA NITROGEN 18.8 mg/dL (7-18); CALCIUM 8.4 mg/dL (8.5-10.1)
[2022-01-14 14:05] LABS: CREATININE 0.9 mg/dL (0.55-1.3)
[2022-01-14 14:07] LABS: TOT PROT 6.2 g/dl (6.4-8.2)
[2022-01-14 14:12] LABS: BILIRUBIN,TOTAL 0.3 mg/dL (0.2-1)
[2022-01-14 23:04] VITALS: BP 124/69; PULSE 90; TEMP 98.6
== END 2022-01-14 22:00 | DRG 603 ==
LOC: JER 12:46 → JERBED 13:38 → J8W 15:19
PROVIDERS: ADMIT Internal Medicine; ATTEND Internal Medicine
DX: L03.116 Cellulitis of left lower limb (principal); L97.919 Non-pressure chronic ulcer of unspecified part of right lower leg with unspecified severity; L97.929 Non-pressure chronic ulcer of unspecified part of left lower leg with unspecified severity; L03.115 Cellulitis of right lower limb; L08.9 Local infection of the skin and subcutaneous tissue, unspecified; D72.829 Elevated white blood cell count, unspecified
CPT/HCPCS: 36415; 73590-TC-LT-FY; 73590-TC-RT-FY; 80048; 80053; 83036; 84443; 85025; 87040; 93005; 93010; 97116-GP; 97161-GP; 99285-25; C9803-CS; G0480; J1644; U0003; U0005